=== PATIENT | female | born 1965 | race Caucasian/White ===

== ENCOUNTER 2018-04-06 14:57 | Inpatient (IN) | payer MEDICAID ==
[~2018-04-06] VITALS: Ht 162.6 cm; Wt 35.4 kg
[2018-04-06 15:46] LABS: AMPHETAMINE SCREEN, URINE Negative (Negative); BARBITURATE SCREEN, URINE Negative (Negative); BENZODIAZEPINE SCREEN, URINE Negative (Negative); CANNABINOID SCREEN, URINE Negative (Negative); COCAINE SCREEN, URINE Negative (Negative); METHADONE SCREEN, URINE Negative (Negative); OPIATE SCREEN, URINE Negative (Negative)
[2018-04-06 15:46] LABS: BASOPHILS # (AUTO) 0.03 x10^3/uL (0-0.1); BASOPHILS % (AUTO) 0 % (0-1); EOSINOPHILS # (AUTO) 0.05 x10^3/uL (0-0.4); EOSINOPHILS % (AUTO) 1 % (1-7); LYMPHOCYTES # (AUTO) 2.25 x10^3/uL (1-3.4); LYMPHOCYTES % (AUTO) 25 % (22-44); MD NO; MEAN CORPUSCULAR HEMOGLOBIN 32.3 pg (27.0-34.8); MEAN CORPUSCULAR HGB CONC 33.4 g/dL (32.4-35.8); MEAN CORPUSCULAR VOLUME 96.8 fL (80-100); MEAN PLATELET VOLUME 8.6 fL (7.4-10.4); MONOCYTES # (AUTO) 0.77 x10^3/uL (0.2-0.8); MONOCYTES % (AUTO) 9 % (2-9); NEUTROPHILS # (AUTO) 5.97 x10^3/uL (1.8-6.8); NEUTROPHILS % (AUTO) 66 % (42-75); PLATELET COUNT 295 x10^3/uL (130-400); RED BLOOD COUNT 4.49 x10^6/uL (3.82-5.3); RED CELL DISTRIBUTION WIDTH 13.5 % (9.6-15.2)
[2018-04-06 15:54] LABS: ALBUMIN 4.3 g/dL (3.4-5.0); ANION GAP 7 mmol/L (5-15); CALCIUM 9.3 mg/dL (8.5-10.1); CHLORIDE 104 mmol/L (98-107)
[2018-04-06 15:58] LABS: ALANINE AMINOTRANSFERASE 29 U/L (12-78); ALKALINE PHOSPHATASE 51 U/L (45-117); BILIRUBIN,TOTAL 0.4 mg/dL (0.2-1.0); CREATININE 0.68 mg/dL (0.55-1.02)
[2018-04-06 16:00] LABS: ACETAMINOPHEN < 2 mcg/mL (10-30); SALICYLATE LEVEL < 1.7 mg/dL (2.8-20.0)
[2018-04-06] MEDS ORDERED: ACETAMINOPHEN 325 MG TABLET PO PRN (17:00)
[2018-04-06] MEDS ORDERED: DOCUSATE 100 MG CAPSULE PO PRN (17:00)
[2018-04-06] MEDS ORDERED: ZIPRASIDONE 20 MG INJ IM ONE ×2 (17:29→17:30)
[2018-04-06] MEDS ORDERED: ZIPRASIDONE 20MG CAPSULE PO ONE (21:00)
[2018-04-06] MEDS ORDERED: ZIPRASIDONE 20 MG INJ IM PRN (22:00)
[2018-04-06] MEDS ORDERED: LORazepam 2 MG/ML, 1ML IM PRN (22:00)
[2018-04-06] MEDS ORDERED: ZIPRASIDONE 20MG CAPSULE PO PRN ×2 (22:00→23:30)
[2018-04-06 22:11] LABS: HCG UR SG 1.029 (1.003-1.030)
[2018-04-06 22:35] VITALS: BP 101/67
[2018-04-06] MEDS ORDERED: GEODON MC SCH (23:00)
[2018-04-07] MEDS: LORazepam 1MG TABLET PO PRN (01:10)
[2018-04-07 07:56] VITALS: BP 109/75
[2018-04-07] MEDS ORDERED: GADOBUTROL 7.5 MMOL/7.5 ML PFS ONE (17:10)
[2018-04-07 20:14] VITALS: BP 130/93
[2018-04-07] MEDS: QUETIAPINE 25MG TABLET PO SCH (21:00)
[2018-04-08] MEDS: QUETIAPINE 25MG TABLET PO SCH ×2 (00:45→20:43)
[2018-04-08] MEDS: LORazepam 1MG TABLET PO PRN (01:51)
[2018-04-08 06:40] LABS: ANION GAP 9 mmol/L (5-15); CALCIUM 9.3 mg/dL (8.5-10.1); CHLORIDE 106 mmol/L (98-107); CREATININE 0.67 mg/dL (0.55-1.02)
[2018-04-08 08:00] VITALS: BP 81/46
[2018-04-08 12:02] VITALS: BP 90/64
[2018-04-08 19:46] VITALS: BP 106/76
[2018-04-09 07:45] VITALS: BP 104/74
[2018-04-09] MEDS: QUETIAPINE 25MG TABLET PO PRN (12:28)
[2018-04-09 19:42] VITALS: BP 111/78
[2018-04-09] MEDS: QUETIAPINE 25MG TABLET PO SCH (22:26)
[2018-04-10 07:30] VITALS: BP 106/70
[2018-04-10 13:38] LABS: ALBUMIN 4.4 g/dL (3.4-5.0); ANION GAP 11 mmol/L (5-15); CALCIUM 9.9 mg/dL (8.5-10.1); CHLORIDE 104 mmol/L (98-107)
[2018-04-10 13:44] LABS: ALANINE AMINOTRANSFERASE 28 U/L (12-78); ALKALINE PHOSPHATASE 55 U/L (45-117); BILIRUBIN,TOTAL 0.9 mg/dL (0.2-1.0); CREATININE 0.89 mg/dL (0.55-1.02); PREALBUMIN 26.2 mg/dL (20.0-40.0); TOTAL PROTEIN 8.3 g/dL (6.4-8.2)
[2018-04-10 19:44] VITALS: BP 115/72
[2018-04-10] MEDS ORDERED: LORazepam 0.5MG TABLET PO ONE (21:00)
[2018-04-10] MEDS: QUETIAPINE 25MG TABLET PO SCH (21:16)
[2018-04-11 07:38] VITALS: BP 107/74
[2018-04-11] MEDS ORDERED: LORazepam 0.5MG TABLET PO ONE (10:30)
[2018-04-11 20:00] VITALS: BP 86/57
[2018-04-11] MEDS: QUETIAPINE 25MG TABLET PO SCH (21:42)
[2018-04-12 07:15] VITALS: BP 96/64
[2018-04-12] MEDS: FOLIC ACID 1 MG TABLET PO SCH (09:00)
[2018-04-12] MEDS: CYANOCOBALAMIN 1,000 MCG/ML, 1ML IM SCH ×2 (09:00→14:00)
[2018-04-12] MEDS: ERGOCALCIFEROL 50,000 UNIT CAPSULE PO SCH (17:42)
[2018-04-12 19:32] VITALS: BP 100/66
[2018-04-12] MEDS: QUETIAPINE 25MG TABLET PO SCH (20:46)
[2018-04-13 08:37] VITALS: BP 98/68
[2018-04-13] MEDS: FOLIC ACID 1 MG TABLET PO SCH (11:31)
[2018-04-13] MEDS: CYANOCOBALAMIN 1,000 MCG/ML, 1ML IM SCH (11:31)
[2018-04-13] MEDS ORDERED: POTASSIUM CHLORIDE 20 MEQ, MAGNESIUM SULFATE 1 GM, FOLIC ACID 1 MG, THIAMINE 200 MG, MV... IV SCH (12:00)
[2018-04-13 16:32] VITALS: BP 98/66
[2018-04-13 19:45] VITALS: BP 95/62
[2018-04-13] MEDS: QUETIAPINE 25MG TABLET PO SCH (22:11)
[2018-04-14 01:20] VITALS: BP 104/66
[2018-04-14 05:34] LABS: BASOPHILS # (AUTO) 0.03 x10^3/uL (0-0.1); BASOPHILS % (AUTO) 1 % (0-1); EOSINOPHILS # (AUTO) 0.11 x10^3/uL (0-0.4); EOSINOPHILS % (AUTO) 2 % (1-7); LYMPHOCYTES # (AUTO) 2.09 x10^3/uL (1-3.4); LYMPHOCYTES % (AUTO) 39 % (22-44); MD NO; MEAN CORPUSCULAR HEMOGLOBIN 32.1 pg (27.0-34.8); MEAN CORPUSCULAR HGB CONC 33.3 g/dL (32.4-35.8); MEAN CORPUSCULAR VOLUME 96.6 fL (80-100); MEAN PLATELET VOLUME 8.7 fL (7.4-10.4); MONOCYTES # (AUTO) 0.59 x10^3/uL (0.2-0.8); MONOCYTES % (AUTO) 11 % (2-9); NEUTROPHILS # (AUTO) 2.59 x10^3/uL (1.8-6.8); NEUTROPHILS % (AUTO) 48 % (42-75); PLATELET COUNT 216 x10^3/uL (130-400); RED BLOOD COUNT 4.25 x10^6/uL (3.82-5.3)
[2018-04-14 05:42] LABS: ALANINE AMINOTRANSFERASE 38 U/L (12-78); ALBUMIN 3.6 g/dL (3.4-5.0); ANION GAP 9 mmol/L (5-15); CALCIUM 8.8 mg/dL (8.5-10.1); CHLORIDE 107 mmol/L (98-107); CREATININE 0.63 mg/dL (0.55-1.02)
[2018-04-14 05:44] LABS: ALKALINE PHOSPHATASE 47 U/L (45-117); BILIRUBIN,TOTAL 0.4 mg/dL (0.2-1.0); TOTAL PROTEIN 6.8 g/dL (6.4-8.2)
[2018-04-14 07:06] VITALS: BP 100/65
[2018-04-14] MEDS: CYANOCOBALAMIN 1,000 MCG/ML, 1ML IM SCH (09:02)
[2018-04-14] MEDS: FOLIC ACID 1 MG TABLET PO SCH (09:02)
[2018-04-14 14:35] VITALS: BP 108/74
[2018-04-14] MEDS ORDERED: POTASSIUM CHLORIDE 20 MEQ, MAGNESIUM SULFATE 1 GM, FOLIC ACID 1 MG, THIAMINE 200 MG, MV... IV SCH (17:00)
[2018-04-14 18:48] VITALS: BP 97/62
[2018-04-14] MEDS: QUETIAPINE 100MG TABLET PO SCH (20:28)
[2018-04-15 01:33] VITALS: BP_SYST 71; BP_SYST 88; BP_DIAS 41; BP_DIAS 56
[2018-04-15 08:00] VITALS: BP 96/71
[2018-04-15] MEDS: CYANOCOBALAMIN 1,000 MCG/ML, 1ML IM SCH (09:20)
[2018-04-15] MEDS: FOLIC ACID 1 MG TABLET PO SCH (09:20)
[2018-04-15 14:00] VITALS: BP 107/71
[2018-04-15] MEDS ORDERED: [UNRECOGNIZED DRUG - OTHER] IV SCH (17:06)
[2018-04-15] MEDS ORDERED: POTASSIUM CHLORIDE IV SCH (17:06)
[2018-04-15] MEDS ORDERED: THIAMINE IV SCH (17:06)
[2018-04-15] MEDS ORDERED: FOLIC ACID IV SCH (17:06)
[2018-04-15] MEDS ORDERED: MVI ADULT IV SCH (17:06)
[2018-04-15 21:36] VITALS: BP 96/60
[2018-04-15] MEDS: QUETIAPINE 100MG TABLET PO SCH (21:42)
[2018-04-16 03:12] VITALS: BP 87/50
[2018-04-16 03:37] VITALS: BP 90/48
[2018-04-16 08:08] VITALS: BP 90/52
[2018-04-16] MEDS: FOLIC ACID 1 MG TABLET PO SCH (08:37)
[2018-04-16] MEDS: CYANOCOBALAMIN 1,000 MCG/ML, 1ML IM SCH (08:38)
[2018-04-16 13:25] VITALS: BP 99/68
[2018-04-16] MEDS: [UNRECOGNIZED DRUG - OTHER] IV SCH (17:06)
[2018-04-16] MEDS: FOLIC ACID IV SCH (17:06)
[2018-04-16] MEDS: POTASSIUM CHLORIDE IV SCH (17:06)
[2018-04-16] MEDS: MVI ADULT IV SCH (17:06)
[2018-04-16] MEDS: THIAMINE IV SCH (17:06)
[2018-04-16 19:21] VITALS: BP 97/62
[2018-04-16] MEDS: QUETIAPINE 100MG TABLET PO SCH (21:51)
[2018-04-17 01:08] VITALS: BP 84/55
[2018-04-17 06:36] VITALS: BP 97/61
[2018-04-17 08:13] VITALS: BP 91/55
[2018-04-17] MEDS: FOLIC ACID 1 MG TABLET PO SCH ×2 (09:00→09:28)
[2018-04-17] MEDS: CYANOCOBALAMIN 1,000 MCG/ML, 1ML IM SCH (09:29)
[2018-04-17 14:13] VITALS: BP 105/70
[2018-04-17] MEDS: [UNRECOGNIZED DRUG - OTHER] IV SCH (17:42)
[2018-04-17] MEDS: POTASSIUM CHLORIDE IV SCH (17:42)
[2018-04-17] MEDS: MVI ADULT IV SCH (17:42)
[2018-04-17] MEDS: FOLIC ACID IV SCH (17:42)
[2018-04-17] MEDS: THIAMINE IV SCH (17:42)
[2018-04-17 18:58] VITALS: BP 111/72
[2018-04-17] MEDS: QUETIAPINE 100MG TABLET PO SCH (20:20)
[2018-04-18 01:49] VITALS: BP_SYST 88; BP_SYST 94; BP_DIAS 54; BP_DIAS 60
[2018-04-18 07:09] VITALS: BP 101/67
[2018-04-18] MEDS: QUETIAPINE 25MG TABLET PO PRN (08:56)
[2018-04-18] MEDS: FOLIC ACID 1 MG TABLET PO SCH (08:56)
[2018-04-18] MEDS: CYANOCOBALAMIN 1,000 MCG/ML, 1ML IM SCH (08:56)
[2018-04-18 13:05] VITALS: BP 93/66
[2018-04-18] MEDS ORDERED: DRONABINOL 5 MG CAPSULE ONE (16:16)
[2018-04-18] MEDS: DRONABINOL 5 MG CAPSULE PO SCH ×2 (16:21→21:00)
[2018-04-18] MEDS: THIAMINE IV SCH (17:19)
[2018-04-18] MEDS: MVI ADULT IV SCH (17:19)
[2018-04-18] MEDS: POTASSIUM CHLORIDE IV SCH (17:19)
[2018-04-18] MEDS: [UNRECOGNIZED DRUG - OTHER] IV SCH (17:19)
[2018-04-18] MEDS: FOLIC ACID IV SCH (17:19)
[2018-04-18 20:08] VITALS: BP 97/63
[2018-04-18] MEDS: QUETIAPINE 100MG TABLET PO SCH (21:00)
[2018-04-19 02:42] VITALS: BP 100/60
[2018-04-19 07:02] VITALS: BP 98/62
[2018-04-19] MEDS: FOLIC ACID 1 MG TABLET PO SCH ×2 (09:00→12:59)
[2018-04-19] MEDS: DRONABINOL 5 MG CAPSULE PO SCH ×2 (09:00→16:00)
[2018-04-19 16:08] VITALS: BP 101/66
[2018-04-19] MEDS: ERGOCALCIFEROL 50,000 UNIT CAPSULE PO SCH (17:09)
[2018-04-19] MEDS: QUETIAPINE 100MG TABLET PO SCH (17:09)
[2018-04-19] MEDS: MVI ADULT IV SCH (18:02)
[2018-04-19] MEDS: THIAMINE IV SCH (18:02)
[2018-04-19] MEDS: POTASSIUM CHLORIDE IV SCH (18:02)
[2018-04-19] MEDS: [UNRECOGNIZED DRUG - OTHER] IV SCH (18:02)
[2018-04-19] MEDS: FOLIC ACID IV SCH (18:02)
[2018-04-19 19:29] VITALS: BP 102/67
[2018-04-20 01:12] VITALS: BP 100/58
[2018-04-20 06:04] LABS: ALBUMIN 3.3 g/dL (3.4-5.0); ANION GAP 7 mmol/L (5-15); BASOPHILS # (AUTO) 0.03 x10^3/uL (0-0.1); BASOPHILS % (AUTO) 0 % (0-1); CALCIUM 8.7 mg/dL (8.5-10.1); CHLORIDE 108 mmol/L (98-107); EOSINOPHILS # (AUTO) 0.09 x10^3/uL (0-0.4); EOSINOPHILS % (AUTO) 1 % (1-7); LYMPHOCYTES # (AUTO) 1.67 x10^3/uL (1-3.4); LYMPHOCYTES % (AUTO) 22 % (22-44); MD NO; MEAN CORPUSCULAR HEMOGLOBIN 31.6 pg (27.0-34.8); MEAN CORPUSCULAR HGB CONC 33.1 g/dL (32.4-35.8); MEAN CORPUSCULAR VOLUME 95.5 fL (80-100); MEAN PLATELET VOLUME 8.5 fL (7.4-10.4); MONOCYTES # (AUTO) 0.66 x10^3/uL (0.2-0.8); MONOCYTES % (AUTO) 9 % (2-9); NEUTROPHILS # (AUTO) 5.01 x10^3/uL (1.8-6.8); NEUTROPHILS % (AUTO) 67 % (42-75); PLATELET COUNT 255 x10^3/uL (130-400); RED BLOOD COUNT 4.77 x10^6/uL (3.82-5.3); RED CELL DISTRIBUTION WIDTH 12.8 % (9.6-15.2)
[2018-04-20 06:10] LABS: ALANINE AMINOTRANSFERASE 30 U/L (12-78); ALKALINE PHOSPHATASE 51 U/L (45-117); BILIRUBIN,TOTAL 0.5 mg/dL (0.2-1.0); CREATININE 0.69 mg/dL (0.55-1.02); PREALBUMIN 18.5 mg/dL (20.0-40.0); TOTAL PROTEIN 6.8 g/dL (6.4-8.2)
[2018-04-20] MEDS: DRONABINOL 5 MG CAPSULE PO SCH ×4 (07:00→16:42)
[2018-04-20 07:55] VITALS: BP 106/72
[2018-04-20] MEDS: FOLIC ACID 1 MG TABLET PO SCH (09:31)
[2018-04-20 14:08] VITALS: BP 108/73
[2018-04-20] MEDS: QUETIAPINE 100MG TABLET PO SCH ×2 (16:42→16:53)
[2018-04-20] MEDS: [UNRECOGNIZED DRUG - OTHER] IV SCH (17:06)
[2018-04-20] MEDS: MVI ADULT IV SCH (17:06)
[2018-04-20] MEDS: FOLIC ACID IV SCH (17:06)
[2018-04-20] MEDS: THIAMINE IV SCH (17:06)
[2018-04-20] MEDS: POTASSIUM CHLORIDE IV SCH (17:06)
[2018-04-20 18:43] VITALS: BP 100/65
[2018-04-20] MEDS: LORazepam 0.5MG TABLET PO SCH (21:25)
[2018-04-21 01:12] VITALS: BP 100/63
[2018-04-21 06:36] VITALS: BP 95/63
[2018-04-21] MEDS: DRONABINOL 5 MG CAPSULE PO SCH ×3 (07:58→17:17)
[2018-04-21] MEDS: FOLIC ACID 1 MG TABLET PO SCH (07:58)
[2018-04-21] MEDS: LORazepam 0.5MG TABLET PO SCH ×2 (09:00→20:09)
[2018-04-21 13:06] VITALS: BP 104/69
[2018-04-21] MEDS: QUETIAPINE 100MG TABLET PO SCH (17:16)
[2018-04-21] MEDS: POTASSIUM CHLORIDE IV SCH (18:16)
[2018-04-21] MEDS: THIAMINE IV SCH (18:16)
[2018-04-21] MEDS: [UNRECOGNIZED DRUG - OTHER] IV SCH (18:16)
[2018-04-21] MEDS: FOLIC ACID IV SCH (18:16)
[2018-04-21] MEDS: MVI ADULT IV SCH (18:16)
[2018-04-21 19:12] VITALS: BP 99/62
[2018-04-22 01:30] VITALS: BP 96/64
[2018-04-22 05:37] LABS: CHLORIDE 107 mmol/L (98-107)
[2018-04-22 05:38] LABS: BASOPHILS # (AUTO) 0.03 x10^3/uL (0-0.1); BASOPHILS % (AUTO) 1 % (0-1); EOSINOPHILS # (AUTO) 0.08 x10^3/uL (0-0.4); EOSINOPHILS % (AUTO) 1 % (1-7); LYMPHOCYTES # (AUTO) 1.51 x10^3/uL (1-3.4); LYMPHOCYTES % (AUTO) 23 % (22-44); MD NO; MEAN CORPUSCULAR HGB CONC 33.2 g/dL (32.4-35.8); MEAN CORPUSCULAR VOLUME 96.2 fL (80-100); MEAN PLATELET VOLUME 8.8 fL (7.4-10.4); MONOCYTES # (AUTO) 0.79 x10^3/uL (0.2-0.8); MONOCYTES % (AUTO) 12 % (2-9); NEUTROPHILS # (AUTO) 4.21 x10^3/uL (1.8-6.8); NEUTROPHILS % (AUTO) 64 % (42-75); PLATELET COUNT 267 x10^3/uL (130-400); RED CELL DISTRIBUTION WIDTH 13.1 % (9.6-15.2)
[2018-04-22 05:46] LABS: ALANINE AMINOTRANSFERASE 22 U/L (12-78); ALBUMIN 3.1 g/dL (3.4-5.0); ALKALINE PHOSPHATASE 53 U/L (45-117); ANION GAP 8 mmol/L (5-15); BILIRUBIN,TOTAL 0.5 mg/dL (0.2-1.0); CALCIUM 9.1 mg/dL (8.5-10.1); CREATININE 0.67 mg/dL (0.55-1.02); TOTAL PROTEIN 6.5 g/dL (6.4-8.2)
[2018-04-22] MEDS: DRONABINOL 5 MG CAPSULE PO SCH ×4 (07:00→16:59)
[2018-04-22 07:36] VITALS: BP 103/60
[2018-04-22] MEDS: LORazepam 0.5MG TABLET PO SCH ×2 (09:00→20:26)
[2018-04-22] MEDS: FOLIC ACID 1 MG TABLET PO SCH ×2 (09:00→09:27)
[2018-04-22] MEDS ORDERED: AMPICILLIN/SULBACTAM 3 GM in SODIUM CHLORIDE 0.9% 100 ML IV SCH (10:00)
[2018-04-22] MEDS ORDERED: OMNIPAQUE 350 MG/ML, 75ML BOTTLE ONE (11:36)
[2018-04-22] MEDS: ACETYLCYSTEINE 600 MG CAPSULE PO SCH ×2 (12:23→20:26)
[2018-04-22] MEDS: AMPICILLIN/SULBACTAM 3 GM in SODIUM CHLORIDE 0.9% 100 ML IV SCH ×3 (12:23→22:46)
[2018-04-22 13:50] VITALS: BP 108/68
[2018-04-22] MEDS: QUETIAPINE 100MG TABLET PO SCH (16:59)
[2018-04-22 18:59] VITALS: BP 90/48
[2018-04-22] MEDS: SODIUM CHLORIDE 0.9% 1,000 ML IV SCH (20:01)
[2018-04-23 01:21] VITALS: BP 89/50
[2018-04-23] MEDS: AMPICILLIN/SULBACTAM 3 GM in SODIUM CHLORIDE 0.9% 100 ML IV SCH ×4 (04:20→20:49)
[2018-04-23 05:32] LABS: BASOPHILS # (AUTO) 0.02 x10^3/uL (0-0.1); BASOPHILS % (AUTO) 0 % (0-1); EOSINOPHILS % (AUTO) 2 % (1-7); LYMPHOCYTES # (AUTO) 1.65 x10^3/uL (1-3.4); LYMPHOCYTES % (AUTO) 27 % (22-44); MD NO; MEAN CORPUSCULAR HEMOGLOBIN 32.1 pg (27.0-34.8); MEAN CORPUSCULAR HGB CONC 33.6 g/dL (32.4-35.8); MEAN CORPUSCULAR VOLUME 95.6 fL (80-100); MEAN PLATELET VOLUME 8.4 fL (7.4-10.4); MONOCYTES # (AUTO) 0.62 x10^3/uL (0.2-0.8); MONOCYTES % (AUTO) 10 % (2-9); NEUTROPHILS # (AUTO) 3.63 x10^3/uL (1.8-6.8); NEUTROPHILS % (AUTO) 60 % (42-75); PLATELET COUNT 251 x10^3/uL (130-400); RED BLOOD COUNT 3.93 x10^6/uL (3.82-5.3); RED CELL DISTRIBUTION WIDTH 12.4 % (9.6-15.2)
[2018-04-23 05:41] LABS: CHLORIDE 111 mmol/L (98-107)
[2018-04-23] MEDS: SODIUM CHLORIDE 0.9% 1,000 ML IV SCH ×3 (05:41→20:49)
[2018-04-23 05:42] LABS: INTERNATIONAL NORMALIZED RATIO 1.03 (0.93-1.1); PROTHROMBIN TIME 10.7 Seconds (9.6-11.5)
[2018-04-23 05:54] LABS: ALANINE AMINOTRANSFERASE 24 U/L (12-78); ALBUMIN 2.7 g/dL (3.4-5.0); ALKALINE PHOSPHATASE 49 U/L (45-117); ANION GAP 6 mmol/L (5-15); BILIRUBIN,TOTAL 0.4 mg/dL (0.2-1.0); CALCIUM 8.4 mg/dL (8.5-10.1); CREATININE 0.64 mg/dL (0.55-1.02); TOTAL PROTEIN 5.8 g/dL (6.4-8.2)
[2018-04-23 06:42] VITALS: BP 94/59
[2018-04-23] MEDS: DRONABINOL 5 MG CAPSULE PO SCH ×4 (08:41→16:54)
[2018-04-23] MEDS: LORazepam 0.5MG TABLET PO SCH ×2 (11:12→20:43)
[2018-04-23] MEDS: FOLIC ACID 1 MG TABLET PO SCH (11:13)
[2018-04-23] MEDS: ACETYLCYSTEINE 600 MG CAPSULE PO SCH ×2 (11:13→20:43)
[2018-04-23 14:36] VITALS: BP 94/57
[2018-04-23] MEDS: QUETIAPINE 100MG TABLET PO SCH (18:06)
[2018-04-23 19:01] VITALS: BP 87/49
[2018-04-23] MEDS: CHLORHEXIDINE 15 ML BOTTLE MM SCH (20:49)
[2018-04-24 00:17] VITALS: BP 80/41
[2018-04-24 00:38] VITALS: BP 82/47
[2018-04-24] MEDS ORDERED: SODIUM CHLORIDE 0.9%, 500ML IVBOLUS ONE (01:00)
[2018-04-24] MEDS: AMPICILLIN/SULBACTAM 3 GM in SODIUM CHLORIDE 0.9% 100 ML IV SCH ×4 (03:46→22:04)
[2018-04-24 03:48] VITALS: BP 89/52
[2018-04-24] MEDS: SODIUM CHLORIDE 0.9% 1,000 ML IV SCH ×3 (05:23→22:04)
[2018-04-24 06:40] VITALS: BP 95/61
[2018-04-24] MEDS: CHLORHEXIDINE 15 ML BOTTLE MM SCH ×2 (08:31→20:42)
[2018-04-24] MEDS: FOLIC ACID 1 MG TABLET PO SCH (08:32)
[2018-04-24] MEDS: ACETYLCYSTEINE 600 MG CAPSULE PO SCH ×2 (08:32→20:42)
[2018-04-24] MEDS: LORazepam 0.5MG TABLET PO SCH ×2 (08:32→20:42)
[2018-04-24] MEDS: DRONABINOL 5 MG CAPSULE PO SCH ×3 (08:32→16:58)
[2018-04-24 12:27] VITALS: BP 99/63
[2018-04-24] MEDS: CYANOCOBALOMIN 100MCG TABLET PO SCH (14:24)
[2018-04-24] MEDS: QUETIAPINE 100MG TABLET PO SCH (16:55)
[2018-04-24 20:00] VITALS: BP 102/65
[2018-04-25 02:00] VITALS: BP 93/55
[2018-04-25] MEDS: AMPICILLIN/SULBACTAM 3 GM in SODIUM CHLORIDE 0.9% 100 ML IV SCH ×4 (04:15→23:52)
[2018-04-25 05:34] LABS: ANION GAP 6 mmol/L (5-15); CALCIUM 8.1 mg/dL (8.5-10.1); CHLORIDE 115 mmol/L (98-107)
[2018-04-25 05:41] LABS: CREATININE 0.52 mg/dL (0.55-1.02)
[2018-04-25] MEDS: SODIUM CHLORIDE 0.9% 1,000 ML IV SCH (06:09)
[2018-04-25 07:30] VITALS: BP 96/63
[2018-04-25] MEDS: CHLORHEXIDINE 15 ML BOTTLE MM SCH ×3 (08:57→20:00)
[2018-04-25] MEDS: CYANOCOBALOMIN 100MCG TABLET PO SCH (08:59)
[2018-04-25] MEDS: FOLIC ACID 1 MG TABLET PO SCH (08:59)
[2018-04-25] MEDS: LORazepam 0.5MG TABLET PO SCH ×3 (09:00→20:00)
[2018-04-25] MEDS: DRONABINOL 5 MG CAPSULE PO SCH ×4 (09:00→17:38)
[2018-04-25] MEDS ORDERED: D5%-0.45NACL+KCL 20MEQ 1,000 ML IV SCH (12:00)
[2018-04-25] MEDS ORDERED: MAGNESIUM SULFATE PMX 2GM/50ML 50 ML IV ONE (12:00)
[2018-04-25] MEDS ORDERED: POTASSIUM PHOSPHATE 22 MEQ in SODIUM CHLORIDE 0.9% 500 ML IV ONE (13:00)
[2018-04-25 13:43] VITALS: BP 115/62
[2018-04-25] MEDS: QUETIAPINE 100MG TABLET PO SCH (17:38)
[2018-04-25 20:00] VITALS: BP 92/52
[2018-04-26 02:00] VITALS: BP 92/53
[2018-04-26 05:14] LABS: ANION GAP 6 mmol/L (5-15); CALCIUM 8.1 mg/dL (8.5-10.1); CHLORIDE 115 mmol/L (98-107)
[2018-04-26 05:17] LABS: CREATININE 0.45 mg/dL (0.55-1.02)
[2018-04-26] MEDS: AMPICILLIN/SULBACTAM 3 GM in SODIUM CHLORIDE 0.9% 100 ML IV SCH ×4 (05:27→22:09)
[2018-04-26] MEDS: DRONABINOL 5 MG CAPSULE PO SCH ×3 (07:00→14:55)
[2018-04-26 07:14] VITALS: BP 87/48
[2018-04-26] MEDS: CYANOCOBALOMIN 100MCG TABLET PO SCH ×2 (09:00→14:56)
[2018-04-26] MEDS: CHLORHEXIDINE 15 ML BOTTLE MM SCH ×2 (09:00→22:10)
[2018-04-26] MEDS ORDERED: SODIUM CHLORIDE 0.9%, 500ML IVBOLUS ONE (09:00)
[2018-04-26] MEDS: FOLIC ACID 1 MG TABLET PO SCH ×2 (09:00→14:55)
[2018-04-26] MEDS: LORazepam 0.5MG TABLET PO SCH ×2 (09:00→22:11)
[2018-04-26] MEDS: D5%-0.45NACL+KCL 20MEQ 1,000 ML IV SCH ×3 (09:30→21:00)
[2018-04-26 12:31] VITALS: BP 89/57
[2018-04-26] MEDS: QUETIAPINE 25MG TABLET PO PRN (14:56)
[2018-04-26] MEDS: ERGOCALCIFEROL 50,000 UNIT CAPSULE PO SCH (15:02)
[2018-04-26] MEDS: QUETIAPINE 100MG TABLET PO SCH (15:02)
[2018-04-26 18:55] VITALS: BP_SYST 76; BP_SYST 88; BP_DIAS 34; BP_DIAS 49
[2018-04-27 01:04] VITALS: BP_SYST 88; BP_SYST 89; BP_DIAS 45; BP_DIAS 49
[2018-04-27] MEDS: AMPICILLIN/SULBACTAM 3 GM in SODIUM CHLORIDE 0.9% 100 ML IV SCH ×4 (05:11→23:39)
[2018-04-27 06:54] VITALS: BP 92/57
[2018-04-27] MEDS: DRONABINOL 5 MG CAPSULE PO SCH ×3 (09:05→16:00)
[2018-04-27] MEDS: FOLIC ACID 1 MG TABLET PO SCH (09:05)
[2018-04-27] MEDS: CHLORHEXIDINE 15 ML BOTTLE MM SCH ×2 (09:05→22:02)
[2018-04-27] MEDS: CYANOCOBALOMIN 100MCG TABLET PO SCH (09:05)
[2018-04-27] MEDS: LORazepam 0.5MG TABLET PO SCH ×2 (09:05→22:02)
[2018-04-27] MEDS ORDERED: LORazepam 2 MG/ML, 1ML IVPush PRN (12:00)
[2018-04-27] MEDS: SERTRALINE 50MG TABLET PO SCH (12:58)
[2018-04-27 15:20] VITALS: BP 96/59
[2018-04-27] MEDS: QUETIAPINE 100MG TABLET PO SCH (17:30)
[2018-04-27 19:02] VITALS: BP 91/54
[2018-04-28 00:47] VITALS: BP 90/50
[2018-04-28 05:16] LABS: BASOPHILS # (AUTO) 0.03 x10^3/uL (0-0.1); BASOPHILS % (AUTO) 1 % (0-1); EOSINOPHILS # (AUTO) 0.14 x10^3/uL (0-0.4); EOSINOPHILS % (AUTO) 2 % (1-7); LYMPHOCYTES # (AUTO) 2.25 x10^3/uL (1-3.4); LYMPHOCYTES % (AUTO) 38 % (22-44); MD NO; MEAN CORPUSCULAR HEMOGLOBIN 31.6 pg (27.0-34.8); MEAN CORPUSCULAR HGB CONC 33.4 g/dL (32.4-35.8); MEAN CORPUSCULAR VOLUME 94.8 fL (80-100); MEAN PLATELET VOLUME 8.6 fL (7.4-10.4); MONOCYTES # (AUTO) 0.62 x10^3/uL (0.2-0.8); MONOCYTES % (AUTO) 11 % (2-9); NEUTROPHILS # (AUTO) 2.85 x10^3/uL (1.8-6.8); NEUTROPHILS % (AUTO) 48 % (42-75); PLATELET COUNT 218 x10^3/uL (130-400); RED BLOOD COUNT 3.79 x10^6/uL (3.82-5.3); RED CELL DISTRIBUTION WIDTH 12.8 % (9.6-15.2)
[2018-04-28 05:20] LABS: ANION GAP 5 mmol/L (5-15); CALCIUM 8.2 mg/dL (8.5-10.1); CHLORIDE 112 mmol/L (98-107)
[2018-04-28 05:22] LABS: CREATININE 0.59 mg/dL (0.55-1.02)
[2018-04-28] MEDS: AMPICILLIN/SULBACTAM 3 GM in SODIUM CHLORIDE 0.9% 100 ML IV SCH ×4 (05:37→23:56)
[2018-04-28] MEDS: DRONABINOL 5 MG CAPSULE PO SCH ×3 (07:00→16:00)
[2018-04-28 08:56] VITALS: BP 94/60
[2018-04-28] MEDS: SERTRALINE 50MG TABLET PO SCH (09:27)
[2018-04-28] MEDS: CHLORHEXIDINE 15 ML BOTTLE MM SCH ×2 (09:27→21:30)
[2018-04-28] MEDS: LORazepam 0.5MG TABLET PO SCH ×2 (09:27→21:30)
[2018-04-28] MEDS: FOLIC ACID 1 MG TABLET PO SCH (09:27)
[2018-04-28] MEDS: CYANOCOBALOMIN 100MCG TABLET PO SCH (09:27)
[2018-04-28 12:26] VITALS: BP 107/69
[2018-04-28] MEDS: QUETIAPINE 100MG TABLET PO SCH (17:48)
[2018-04-28 21:22] VITALS: BP 92/56
[2018-04-29 05:25] VITALS: BP 87/53
[2018-04-29 05:27] LABS: ANION GAP 5 mmol/L (5-15); CALCIUM 8.4 mg/dL (8.5-10.1); CHLORIDE 109 mmol/L (98-107)
[2018-04-29] MEDS: AMPICILLIN/SULBACTAM 3 GM in SODIUM CHLORIDE 0.9% 100 ML IV SCH ×4 (05:38→23:38)
[2018-04-29 05:44] VITALS: BP 92/57
[2018-04-29 07:30] VITALS: BP 83/50
[2018-04-29] MEDS: CHLORHEXIDINE 15 ML BOTTLE MM SCH ×2 (09:00→21:13)
[2018-04-29] MEDS: SERTRALINE 50MG TABLET PO SCH (09:11)
[2018-04-29] MEDS: DRONABINOL 5 MG CAPSULE PO SCH ×3 (09:11→17:01)
[2018-04-29] MEDS: CYANOCOBALOMIN 100MCG TABLET PO SCH (09:11)
[2018-04-29] MEDS: FOLIC ACID 1 MG TABLET PO SCH (09:11)
[2018-04-29] MEDS: LORazepam 0.5MG TABLET PO SCH ×2 (09:11→21:13)
[2018-04-29 14:09] VITALS: BP 91/47
[2018-04-29] MEDS: QUETIAPINE 100MG TABLET PO SCH (17:01)
[2018-04-29 19:27] VITALS: BP_SYST 66; BP_SYST 77; BP_DIAS 35; BP_DIAS 50
[2018-04-29 19:57] VITALS: BP 91/53
[2018-04-30 02:27] VITALS: BP 91/52
[2018-04-30 05:21] LABS: CHLORIDE 106 mmol/L (98-107)
[2018-04-30] MEDS: AMPICILLIN/SULBACTAM 3 GM in SODIUM CHLORIDE 0.9% 100 ML IV SCH ×4 (05:28→23:42)
[2018-04-30 05:32] LABS: ANION GAP 6 mmol/L (5-15); CALCIUM 8.4 mg/dL (8.5-10.1); CREATININE 0.56 mg/dL (0.55-1.02)
[2018-04-30 07:45] VITALS: BP 83/50
[2018-04-30] MEDS: SERTRALINE 50MG TABLET PO SCH (08:54)
[2018-04-30] MEDS: DRONABINOL 5 MG CAPSULE PO SCH ×3 (08:54→16:36)
[2018-04-30] MEDS: CYANOCOBALOMIN 100MCG TABLET PO SCH (08:54)
[2018-04-30] MEDS: LORazepam 0.5MG TABLET PO SCH ×2 (08:54→21:26)
[2018-04-30] MEDS: FOLIC ACID 1 MG TABLET PO SCH (08:54)
[2018-04-30] MEDS: CHLORHEXIDINE 15 ML BOTTLE MM SCH ×2 (09:00→21:27)
[2018-04-30 12:56] VITALS: BP 82/51
[2018-04-30 12:57] VITALS: BP 84/49
[2018-04-30] MEDS: QUETIAPINE 100MG TABLET PO SCH (16:37)
[2018-04-30 20:00] VITALS: BP 87/44
[2018-05-01 02:00] VITALS: BP 89/57
[2018-05-01 05:08] LABS: BASOPHILS # (AUTO) 0.03 x10^3/uL (0-0.1); BASOPHILS % (AUTO) 1 % (0-1); EOSINOPHILS # (AUTO) 0.12 x10^3/uL (0-0.4); EOSINOPHILS % (AUTO) 2 % (1-7); LYMPHOCYTES # (AUTO) 1.79 x10^3/uL (1-3.4); LYMPHOCYTES % (AUTO) 35 % (22-44); MD NO; MEAN CORPUSCULAR HEMOGLOBIN 31.5 pg (27.0-34.8); MEAN CORPUSCULAR VOLUME 95.3 fL (80-100); MEAN PLATELET VOLUME 8.8 fL (7.4-10.4); MONOCYTES # (AUTO) 0.55 x10^3/uL (0.2-0.8); MONOCYTES % (AUTO) 11 % (2-9); NEUTROPHILS # (AUTO) 2.59 x10^3/uL (1.8-6.8); NEUTROPHILS % (AUTO) 51 % (42-75); PLATELET COUNT 251 x10^3/uL (130-400); RED BLOOD COUNT 3.97 x10^6/uL (3.82-5.3); RED CELL DISTRIBUTION WIDTH 12.5 % (9.6-15.2)
[2018-05-01 05:18] LABS: ALANINE AMINOTRANSFERASE 49 U/L (12-78); ALBUMIN 2.8 g/dL (3.4-5.0); ANION GAP 4 mmol/L (5-15); CALCIUM 8.5 mg/dL (8.5-10.1); CHLORIDE 106 mmol/L (98-107); CREATININE 0.59 mg/dL (0.55-1.02)
[2018-05-01 05:23] LABS: ALKALINE PHOSPHATASE 51 U/L (45-117); BILIRUBIN,TOTAL 0.2 mg/dL (0.2-1.0); PREALBUMIN 21.7 mg/dL (20.0-40.0); TOTAL PROTEIN 5.8 g/dL (6.4-8.2)
[2018-05-01 05:26] LABS: BILIRUBIN, DIRECT < 0.1 mg/dL (0.1-0.2); BILIRUBIN,INDIRECT 0.1 mg/dL (0.0-2.0)
[2018-05-01] MEDS: AMPICILLIN/SULBACTAM 3 GM in SODIUM CHLORIDE 0.9% 100 ML IV SCH ×4 (05:38→23:32)
[2018-05-01 06:29] VITALS: BP 94/54
[2018-05-01] MEDS: CYANOCOBALOMIN 100MCG TABLET PO SCH (07:54)
[2018-05-01] MEDS: LORazepam 0.5MG TABLET PO SCH ×2 (07:54→21:25)
[2018-05-01] MEDS: FOLIC ACID 1 MG TABLET PO SCH (07:54)
[2018-05-01] MEDS: DRONABINOL 5 MG CAPSULE PO SCH ×3 (07:54→16:00)
[2018-05-01] MEDS: CHLORHEXIDINE 15 ML BOTTLE MM SCH ×2 (07:55→21:26)
[2018-05-01] MEDS: SERTRALINE 50MG TABLET PO SCH (07:55)
[2018-05-01 12:19] VITALS: BP 80/50
[2018-05-01] MEDS: QUETIAPINE 100MG TABLET PO SCH (17:26)
[2018-05-01 20:00] VITALS: BP 82/47
[2018-05-02 02:00] VITALS: BP 92/54
[2018-05-02] MEDS: AMPICILLIN/SULBACTAM 3 GM in SODIUM CHLORIDE 0.9% 100 ML IV SCH ×4 (05:28→23:30)
[2018-05-02 05:42] LABS: CHLORIDE 107 mmol/L (98-107)
[2018-05-02 05:46] LABS: ANION GAP 7 mmol/L (5-15); CALCIUM 8.7 mg/dL (8.5-10.1)
[2018-05-02] MEDS: SERTRALINE 50MG TABLET PO SCH (07:55)
[2018-05-02] MEDS: CYANOCOBALOMIN 100MCG TABLET PO SCH (07:55)
[2018-05-02] MEDS: LORazepam 0.5MG TABLET PO SCH ×2 (07:55→20:46)
[2018-05-02] MEDS: CHLORHEXIDINE 15 ML BOTTLE MM SCH ×2 (07:55→23:30)
[2018-05-02] MEDS: FOLIC ACID 1 MG TABLET PO SCH (07:55)
[2018-05-02 08:45] VITALS: BP 90/55
[2018-05-02 12:11] VITALS: BP 88/50
[2018-05-02] MEDS: QUETIAPINE 100MG TABLET PO SCH (17:54)
[2018-05-02 20:27] VITALS: BP 83/36
[2018-05-03 02:27] VITALS: BP 80/49
[2018-05-03] MEDS: AMPICILLIN/SULBACTAM 3 GM in SODIUM CHLORIDE 0.9% 100 ML IV SCH ×4 (05:35→23:31)
[2018-05-03 07:45] VITALS: BP 83/53
[2018-05-03] MEDS: SERTRALINE 50MG TABLET PO SCH (08:28)
[2018-05-03] MEDS: CYANOCOBALOMIN 100MCG TABLET PO SCH (08:28)
[2018-05-03] MEDS: CHLORHEXIDINE 15 ML BOTTLE MM SCH ×2 (08:28→20:46)
[2018-05-03] MEDS: LORazepam 0.5MG TABLET PO SCH ×2 (08:28→20:46)
[2018-05-03] MEDS: FOLIC ACID 1 MG TABLET PO SCH (08:28)
[2018-05-03 13:48] VITALS: BP 90/53
[2018-05-03] MEDS: QUETIAPINE 100MG TABLET PO SCH (16:40)
[2018-05-03] MEDS: ERGOCALCIFEROL 50,000 UNIT CAPSULE PO SCH (16:40)
[2018-05-03 19:57] VITALS: BP 92/51
[2018-05-04 02:59] VITALS: BP 91/53
[2018-05-04] MEDS: AMPICILLIN/SULBACTAM 3 GM in SODIUM CHLORIDE 0.9% 100 ML IV SCH ×4 (05:40→23:23)
[2018-05-04 06:59] VITALS: BP 93/51
[2018-05-04] MEDS: SERTRALINE 50MG TABLET PO SCH (09:40)
[2018-05-04] MEDS: CYANOCOBALOMIN 100MCG TABLET PO SCH (09:40)
[2018-05-04] MEDS: FOLIC ACID 1 MG TABLET PO SCH (09:40)
[2018-05-04] MEDS: LORazepam 0.5MG TABLET PO SCH ×2 (09:40→20:49)
[2018-05-04] MEDS: CHLORHEXIDINE 15 ML BOTTLE MM SCH ×2 (09:41→20:49)
[2018-05-04 14:42] VITALS: BP 90/53
[2018-05-04] MEDS: QUETIAPINE 100MG TABLET PO SCH (17:14)
[2018-05-04 20:43] VITALS: BP 74/32
[2018-05-05 03:59] VITALS: BP 89/52
[2018-05-05] MEDS: AMPICILLIN/SULBACTAM 3 GM in SODIUM CHLORIDE 0.9% 100 ML IV SCH ×3 (05:11→18:08)
[2018-05-05 06:32] LABS: BASOPHILS # (AUTO) 0.03 x10^3/uL (0-0.1); BASOPHILS % (AUTO) 1 % (0-1); EOSINOPHILS # (AUTO) 0.14 x10^3/uL (0-0.4); EOSINOPHILS % (AUTO) 3 % (1-7); LYMPHOCYTES % (AUTO) 30 % (22-44); MD NO; MEAN CORPUSCULAR HEMOGLOBIN 31.2 pg (27.0-34.8); MEAN CORPUSCULAR HGB CONC 33.1 g/dL (32.4-35.8); MEAN CORPUSCULAR VOLUME 94.2 fL (80-100); MEAN PLATELET VOLUME 9.3 fL (7.4-10.4); MONOCYTES # (AUTO) 0.69 x10^3/uL (0.2-0.8); MONOCYTES % (AUTO) 13 % (2-9); NEUTROPHILS # (AUTO) 2.93 x10^3/uL (1.8-6.8); NEUTROPHILS % (AUTO) 54 % (42-75); PLATELET COUNT 232 x10^3/uL (130-400); RED BLOOD COUNT 4.06 x10^6/uL (3.82-5.3); RED CELL DISTRIBUTION WIDTH 13.2 % (9.6-15.2)
[2018-05-05 06:39] LABS: ALANINE AMINOTRANSFERASE 77 U/L (12-78); ANION GAP 4 mmol/L (5-15); CALCIUM 8.4 mg/dL (8.5-10.1); CHLORIDE 104 mmol/L (98-107); CREATININE 0.62 mg/dL (0.55-1.02)
[2018-05-05 06:41] LABS: ALKALINE PHOSPHATASE 56 U/L (45-117); BILIRUBIN,TOTAL 0.5 mg/dL (0.2-1.0); TOTAL PROTEIN 6.2 g/dL (6.4-8.2)
[2018-05-05 07:17] VITALS: BP 80/51
[2018-05-05] MEDS: FOLIC ACID 1 MG TABLET PO SCH (08:45)
[2018-05-05] MEDS: LORazepam 0.5MG TABLET PO SCH ×2 (08:46→20:20)
[2018-05-05] MEDS: CYANOCOBALOMIN 100MCG TABLET PO SCH (08:46)
[2018-05-05] MEDS: SERTRALINE 100MG TABLET PO SCH (08:46)
[2018-05-05] MEDS: CHLORHEXIDINE 15 ML BOTTLE MM SCH ×2 (08:49→20:20)
[2018-05-05] MEDS: QUETIAPINE 100MG TABLET PO SCH (18:08)
[2018-05-05 20:14] VITALS: BP 88/47
[2018-05-06 00:37] VITALS: BP 84/45
[2018-05-06] MEDS: AMPICILLIN/SULBACTAM 3 GM in SODIUM CHLORIDE 0.9% 100 ML IV SCH ×2 (00:49→05:48)
[2018-05-06 04:42] VITALS: BP 92/57
[2018-05-06 08:00] VITALS: BP 86/52
[2018-05-06] MEDS: CYANOCOBALOMIN 100MCG TABLET PO SCH (09:48)
[2018-05-06] MEDS: FOLIC ACID 1 MG TABLET PO SCH (09:48)
[2018-05-06] MEDS: LORazepam 0.5MG TABLET PO SCH ×2 (09:48→21:35)
[2018-05-06] MEDS: SERTRALINE 100MG TABLET PO SCH (09:48)
[2018-05-06] MEDS: CHLORHEXIDINE 15 ML BOTTLE MM SCH ×2 (09:49→20:19)
[2018-05-06] MEDS ORDERED: SODIUM CHLORIDE 0.9%, 250ML IVBOLUS ONE ×2 (10:00→11:30)
[2018-05-06 11:14] VITALS: BP 80/51
[2018-05-06 13:51] VITALS: BP 86/55
[2018-05-06 20:54] VITALS: BP 92/53
[2018-05-06] MEDS: QUETIAPINE 100MG TABLET PO SCH (21:35)
[2018-05-07 01:09] VITALS: BP 93/53
[2018-05-07 07:55] VITALS: BP 88/60
[2018-05-07] MEDS: SERTRALINE 100MG TABLET PO SCH (09:20)
[2018-05-07] MEDS: LORazepam 0.5MG TABLET PO SCH ×2 (09:20→20:27)
[2018-05-07] MEDS: FOLIC ACID 1 MG TABLET PO SCH (09:20)
[2018-05-07] MEDS: CYANOCOBALOMIN 100MCG TABLET PO SCH (09:20)
[2018-05-07] MEDS: CHLORHEXIDINE 15 ML BOTTLE MM SCH ×2 (09:20→20:27)
[2018-05-07 14:26] VITALS: BP 95/61
[2018-05-07] MEDS: QUETIAPINE 100MG TABLET PO SCH (18:03)
[2018-05-07 20:28] VITALS: BP 91/51
[2018-05-08 00:20] VITALS: BP 91/56
[2018-05-08 05:40] LABS: BASOPHILS # (AUTO) 0.04 x10^3/uL (0-0.1); BASOPHILS % (AUTO) 1 % (0-1); EOSINOPHILS # (AUTO) 0.13 x10^3/uL (0-0.4); EOSINOPHILS % (AUTO) 2 % (1-7); LYMPHOCYTES # (AUTO) 1.97 x10^3/uL (1-3.4); LYMPHOCYTES % (AUTO) 34 % (22-44); MD NO; MEAN CORPUSCULAR HEMOGLOBIN 31.1 pg (27.0-34.8); MEAN CORPUSCULAR HGB CONC 33.1 g/dL (32.4-35.8); MEAN CORPUSCULAR VOLUME 93.9 fL (80-100); MEAN PLATELET VOLUME 9.7 fL (7.4-10.4); MONOCYTES # (AUTO) 0.68 x10^3/uL (0.2-0.8); MONOCYTES % (AUTO) 12 % (2-9); NEUTROPHILS # (AUTO) 2.96 x10^3/uL (1.8-6.8); NEUTROPHILS % (AUTO) 51 % (42-75); PLATELET COUNT 247 x10^3/uL (130-400); RED BLOOD COUNT 4.18 x10^6/uL (3.82-5.3); RED CELL DISTRIBUTION WIDTH 13.1 % (9.6-15.2)
[2018-05-08 07:48] VITALS: BP 91/51
[2018-05-08] MEDS: SERTRALINE 100MG TABLET PO SCH (08:38)
[2018-05-08] MEDS: LORazepam 0.5MG TABLET PO SCH ×2 (08:38→21:49)
[2018-05-08] MEDS: CYANOCOBALOMIN 100MCG TABLET PO SCH (08:39)
[2018-05-08] MEDS: FOLIC ACID 1 MG TABLET PO SCH (08:39)
[2018-05-08] MEDS: CHLORHEXIDINE 15 ML BOTTLE MM SCH ×2 (08:58→21:49)
[2018-05-08 13:30] VITALS: BP 109/73
[2018-05-08] MEDS: QUETIAPINE 100MG TABLET PO SCH (17:31)
[2018-05-08 19:30] VITALS: BP 91/56
[2018-05-09 02:46] VITALS: BP 88/58
[2018-05-09] MEDS ORDERED: SODIUM CHLORIDE 0.9%, 500ML IVBOLUS ONE (04:00)
[2018-05-09 06:46] VITALS: BP 92/55
[2018-05-09 07:39] VITALS: BP 92/53
[2018-05-09] MEDS: CHLORHEXIDINE 15 ML BOTTLE MM SCH ×2 (08:21→20:50)
[2018-05-09] MEDS: LORazepam 0.5MG TABLET PO SCH ×2 (08:21→20:50)
[2018-05-09] MEDS: FOLIC ACID 1 MG TABLET PO SCH (08:21)
[2018-05-09] MEDS: SERTRALINE 100MG TABLET PO SCH (08:21)
[2018-05-09] MEDS: CYANOCOBALOMIN 100MCG TABLET PO SCH (08:21)
[2018-05-09 13:22] VITALS: BP 102/66
[2018-05-09] MEDS: QUETIAPINE 100MG TABLET PO SCH (18:09)
[2018-05-09 18:36] VITALS: BP 96/58
[2018-05-10 01:17] VITALS: BP 96/62
[2018-05-10 08:15] VITALS: BP 90/50
[2018-05-10] MEDS: CHLORHEXIDINE 15 ML BOTTLE MM SCH ×2 (09:00→20:54)
[2018-05-10] MEDS: SERTRALINE 100MG TABLET PO SCH (09:52)
[2018-05-10] MEDS: FOLIC ACID 1 MG TABLET PO SCH (09:52)
[2018-05-10] MEDS: CYANOCOBALOMIN 100MCG TABLET PO SCH (09:52)
[2018-05-10] MEDS: LORazepam 0.5MG TABLET PO SCH ×2 (09:52→20:54)
[2018-05-10 14:26] VITALS: BP 102/66
[2018-05-10] MEDS: ERGOCALCIFEROL 50,000 UNIT CAPSULE PO SCH (17:25)
[2018-05-10] MEDS: QUETIAPINE 100MG TABLET PO SCH (17:26)
[2018-05-10] MEDS ORDERED: POLYETHYLENE GLYCOL 17 GM PACKET ONE (17:45)
[2018-05-10] MEDS: POLYETHYLENE GLYCOL 17 GM PACKET PO SCH (17:47)
[2018-05-10 21:33] VITALS: BP 90/50
[2018-05-11 00:32] VITALS: BP 91/53
[2018-05-11 07:25] VITALS: BP 90/52
[2018-05-11] MEDS: CHLORHEXIDINE 15 ML BOTTLE MM SCH ×2 (09:00→20:29)
[2018-05-11] MEDS: LORazepam 0.5MG TABLET PO SCH ×2 (10:19→20:27)
[2018-05-11] MEDS: SERTRALINE 100MG TABLET PO SCH (10:20)
[2018-05-11] MEDS: FOLIC ACID 1 MG TABLET PO SCH (10:20)
[2018-05-11] MEDS: CYANOCOBALOMIN 100MCG TABLET PO SCH (10:20)
[2018-05-11 13:57] VITALS: BP 105/68
[2018-05-11] MEDS: QUETIAPINE 100MG TABLET PO SCH (18:40)
[2018-05-11 18:51] VITALS: BP 89/48
[2018-05-12 01:05] VITALS: BP 90/53
[2018-05-12 07:15] VITALS: BP 90/50
[2018-05-12] MEDS: SERTRALINE 100MG TABLET PO SCH (10:22)
[2018-05-12] MEDS: LORazepam 0.5MG TABLET PO SCH (10:22)
[2018-05-12] MEDS: CYANOCOBALOMIN 100MCG TABLET PO SCH (10:22)
[2018-05-12] MEDS: POLYETHYLENE GLYCOL 17 GM PACKET PO SCH (10:22)
[2018-05-12] MEDS: FOLIC ACID 1 MG TABLET PO SCH (10:22)
[2018-05-12] MEDS: CHLORHEXIDINE 15 ML BOTTLE MM SCH (10:40)
[2018-05-12] MEDS ORDERED: FOLI-17 PO (13:36)
[2018-05-12] MEDS ORDERED: CYAN250013 PO (13:36)
[2018-05-12] MEDS ORDERED: LORA-445 PO (13:36)
[2018-05-12] MEDS ORDERED: ERGO500017 PO (13:36)
[2018-05-12] MEDS ORDERED: CHLO473M MM (13:36)
[2018-05-12] MEDS ORDERED: SERT100T5 PO (13:36)
[2018-05-12] MEDS ORDERED: QUET100T PO (13:36)
== END 2018-05-12 15:46 | disposition home or self-care (01) | DRG 885 ==
LOC: EDBD 14:57 → ED 16:34 → EDIP 16:42 → 3E 22:34 → OBSVTOIN 04-11 15:35 → 4WST 04-13 12:18 → DCLOUNGE 05-12 15:17
PROVIDERS: ADMIT Hospitalist; ATTEND Hospitalist
DX: F23 Brief psychotic disorder (principal); E43 Unspecified severe protein-calorie malnutrition; F32.3 Major depressive disorder, single episode, severe with psychotic features; R45.851 Suicidal ideations; Z68.1 Body mass index [BMI] 19.9 or less, adult; E87.1 Hypo-osmolality and hyponatremia; E66.9 Obesity, unspecified; R62.7 Adult failure to thrive; E53.8 Deficiency of other specified B group vitamins; E55.9 Vitamin D deficiency, unspecified; F42.9 Obsessive-compulsive disorder, unspecified; F50.9 Eating disorder, unspecified; G31.84 Mild cognitive impairment of uncertain or unknown etiology; K02.9 Dental caries, unspecified; K04.7 Periapical abscess without sinus; Z59.0 Homelessness; Z91.14 Patient's other noncompliance with medication regimen
CPT/HCPCS: 36415; 70110; 70487; 70553; 74018; 80048; 80053; 80076; 80307; 80329; 81025; 82306; 82533; 82607; 83735; 83921; 84100; 84134; 84443; 85025; 85610; 87040; 93005; 96372; A9585; G0378; J0295; J3411; J3475; J3480; J3486; Q0167; Q9967; 92523-GN; G0480; J2060; J3420; J7030; J7040; J7050; J7121